=== PATIENT | male | born 2000 | race Hispanic/Latino ===

== ENCOUNTER 2025-03-10 21:35 | Emergency (ER) | payer SELFPAY ==
[~2025-03-10] VITALS: Ht 172.7 cm; Wt 82.6 kg
[2025-03-10] MEDS: CYCLOBENZAPRINE HCL 10 MG TABLET PO ONE (21:58)
--- NOTE | 2025-03-10 22:26 | ERN ---
ED Note History of Present Illness Stated Complaint: C/O HEADACHE W/RT SHOULDER PAIN X 5 MONTHS Chief Complaint: Headache Time Seen by MD: 21:37 Time Seen by Midlevel: 21:37 Dictation: The patient is a 24-year-old male with no past medical history who presents to the emergency department with complaints of right shoulder pain that radiates to his neck and his head. Patient reports that he has been having this pain for a year but reports worsening in the last month. Patient denies any injuries. Denies any nausea or vomiting, denies any dizziness. Denies any paresthesia. Allergies: Coded Allergies: No Known Allergies (Unverified Allergy, Unknown, 03/10/25) Past Medical History Past Medical History: No Pertinent History Surgical History: None RN Note Reviewed/Agreed w/PFSH: Yes Review of System Dictation Constitutional: Negative for fever,chills, and weight loss Eyes: Negative for injury, pain,redness, and discharge ENT: Negative for injury,pain or swelling Cardiovascular: Negative for chest pain, palpitations, and edema Respiratory: Negative for shortness of breath, cough, and wheezing, Abdomen/GI: Negative for abdominal pain, nausea, vomiting, diarrhea, and constipation Back: Negative for injury and pain : Negative for injury, bleeding and discharge MS/Extremity: Negative for injury and deformity positive for right shoulder pain Skin: Negative for rash, and discoloration Neuro: Negative for headache, weakness, numbness, tingling, and seizure Psych: Negative for suicide ideation, homicidal ideation, and hallucinations Initial Vital Sign VS Vital Signs Date Time Temp Pulse Resp B/P (MAP) Pulse Ox O2 Delivery O2 Flow Rate FiO2 03/10/25 21:37 97.9 88 20 149/89 97 Room Air 03/10/25 21:42 0 21 Physical Exam Dictation Vital Signs reviewed General Appearance: Alert, oriented x 3, no acute distress, well developed, nourished. Head and Face: non-traumatic. Eyes: PERRL, pink conjunctivas, eyelid no trauma, anterior chamber with arcus senilis. Ears: Pinnas intact and no signs of trauma or erythema ear canals clear and no discharge TM no erythema Nose: No discharge, no bleeding. Oropharynx: Mouth normal, tongue pink. pharynx clear,no erythema, tonsils no exudates, no abscesses noted, mucous membrane moist Neck: Supple, non-tender, no thyromegaly, no masses, no JVD, no bruits Breast:Deferred Chest:No tenderness, no crepitus, no paradoxical movement, no retractions Lungs:Clear, well-ventilated, symmetric, no rales, no wheezing, no rhonchi, no stridor, good breath sounds bilaterally Heart: Regular rate, regular rhythm, no murmur, no gallops Vascular: no peripheral edema, radial pulses 3+ bilaterally Abdomen: Soft, positive bowel sounds, nondistended, no guarding, nontender, no rebound, no masses no hepatomegaly, no splenomegaly, no Griffith's sign, no hernias. Rectal: Deferred Genital: Deferred Neurological: Normal speech, motor function intact, sensory function intact Musculoskeletal: Neck nontender, full range of motion, back nontender, full range of motion, Extremities: nontender, full range of motion Skin: Color pink, dry, no turgor, no rash, no lacerations, no abrasions, no contusions. Lymphatic: Deferred Results (Laboratory/Radiology) Laboratory/Radiology EXAM: CR right Shoulder, 2 View. CLINICAL HISTORY: pain COMPARISON: None provided. FINDINGS: BONES: No acute fracture or aggressive appearing osseous lesion. JOINTS: No dislocation. The joint spaces are normal. SOFT TISSUES: The soft tissues are unremarkable. IMPRESSION: No acute abnormality evident on examination of the right shoulder. No acute fracture or dislocation. /[place] [facility] Reviewed?: Yes ED Course ED Course Orders Procedure Category Date Status Time Cyclobenzaprine Hcl PHA 03/10/25 Complete (Cyclobenzaprine Hcl 22:00 Acetaminophen 500mg PHA 03/10/25 Complete Tab (Tylenol 500mg T 22:00 Shoulder Comp 2+Vws Rt RAD 03/10/25 Resulted 21:52 Current Medications Medications (Trade) Dose Ordered Sig/Harinder Route PRN Reason Start Time Stop Time Status Last Admin Dose Admin Acetaminophen (TYLenol 500MG TAB) 1,000 mg ONCE ONCE PO 03/10/25 22:00 03/10/25 22:01 DC 03/10/25 21:59 Cyclobenzaprine HCl (Cyclobenzaprine HCl) 10 mg ONCE ONCE PO 03/10/25 22:00 03/10/25 22:01 DC 03/10/25 21:58 Vital Signs Date Time Temp Pulse Resp B/P (MAP) Pulse Ox O2 Delivery O2 Flow Rate FiO2 03/10/25 21:42 98.1 85 16 146/86 98 Room Air* 0 21 03/10/25 21:37 97.9 88 20 149/89 97 Room Air Medical Decision Making MDM The patient is a 24-year-old male with no past medical history who presents to the emergency department with complaints of right shoulder pain that radiates to his neck and his head. Patient reports that he has been having this pain for a year but reports worsening in the last month. Patient denies any injuries. Denies any nausea or vomiting, denies any dizziness. Denies any paresthesia. X-ray showed no acute fractures or dislocations. On physical exam patient is in no acute distress, neurologically intact, neurovascularly intact. Patient instructed to follow up with primary doctor in 1-2 days. Differential diagnosis: Shoulder dislocation, arthritis, shoulder sprain Need for hospitalization: Patient does not meet criteria for hospitalization. There are no social concerns with this patient. DX & DISP Disposition: Discharge Departure Impression: Primary Impression: Right shoulder pain Additional Impression: Musculoskeletal pain Condition: Stable Scripts Cyclobenzaprine HCl (Flexeril) 10 Mg Tab 10 MG PO TID for muscle sstiffness, #14 TAB 0 Refills Prov: LISANDRO MCGREGOR BOATWRIGHT 03/10/25 Additional Instructions: Your x-ray did not show any fractures or dislocations. Please take your medications as prescribed. Follow up with the primary doctor in 1-2 days. If anything worsens please return turned to ER. FOLLOW-UP WITH PRIMARY CARE PROVIDER IN 1 TO 2 DAYS. TAKE MEDICATIONS DIRECTED HERE IN THE EMERGENCY ROOM. OKAY TO CONTINUE HOME MEDICATIONS UNLESS OTHERWISE DISCUSSED DURING YOUR VISIT IN THE EMERGENCY ROOM TODAY. RETURN TO YOUR NEAREST EMERGENCY ROOM IF SYMPTOMS WORSEN OR IF THERE IS NO IMPROVEMENT. CALL 911 IF YOU NEED IMMEDIATE ASSISTANCE. TAKE TYLENOL [id number] NEEDED AND IF NO CONTRAINDICATIONS ARE PRESENT. INCREASE ORAL HYDRATION. A WOUND CULTURE OR URINE CULTURE WAS ORDERED HERE IN THE EMERGENCY ROOM DEPARTMENT PLEASE FOLLOW-UP WITH PRIMARY CARE PROVIDER AND ADVISE THEM TO GET REPEAT PORTS FROM OUR FACILITY. IF YOU HAD ANY ENMANUEL WRAP/SPLINTS THAT WERE APPLIED HERE, PLEASE DO NOT REMOVE THEM UNTIL YOU SEE YOUR PRIMARY CARE OR SPECIALTY. Referrals: SELF,REFERRAL (PCP) Time of Disposition: 22:56 I have reviewed the case, and I agree with, Diagnosis and Plan LISANDRO MCGREGOR BOATWRIGHT Mar 10, 2025 22:26
--- NOTE | 2025-03-10 22:53 | HMCIMG ---
EXAM: CR right Shoulder, 2 View. CLINICAL HISTORY: pain COMPARISON: None provided. FINDINGS: BONES: No acute fracture or aggressive appearing osseous lesion. JOINTS: No dislocation. The joint spaces are normal. SOFT TISSUES: The soft tissues are unremarkable. IMPRESSION: No acute abnormality evident on examination of the right shoulder. No acute fracture or dislocation. /[place]
[2025-03-10] MEDS ORDERED: CYCL10TA16 PO (22:57)
[2025-03-10 23:07] VITALS: BP 140/84; PULSE 80; RESP 16; TEMP 98.1; O2SAT 98
== END 2025-03-10 23:14 | disposition home or self-care (01) ==
LOC: EDH 21:35
DX: M25.511 Pain in right shoulder (principal); M79.18 Myalgia, other site
CPT/HCPCS: 73030; 99283